=== PATIENT | male | born 2000 | race Caucasian/White ===

== ENCOUNTER 2019-04-22 13:11 | Emergency (ER) | payer OTHER ==
[~2019-04-22] VITALS: Ht 175.3 cm; Wt 111.7 kg
[~2019-04-22 13:11] MED LIST: AMOX500C2 PO; IBUP-1542 PO; NPH10OT LEFT EAR
[2019-04-22 13:32] VITALS: Ht 175.3 cm; Wt 111.7 kg
[2019-04-22] MEDS ORDERED: LIDOCAINE/MYLANTA 40 ML BTL PO STA (14:21)
[2019-04-22] MEDS ORDERED: FAMOTIDINE 20 MG TAB PO ONE (14:30)
[2019-04-22] MEDS ORDERED: FAMO10TA84 PO (15:20)
[2019-04-22] MEDS ORDERED: DOCU-144 PO (15:20)
[2019-04-22] MEDS ORDERED: POLY17PO6 PO (15:20)
[2019-04-22] MEDS ORDERED: UDMYL PO (15:20)
--- NOTE | 2019-04-22 15:21 | ERD ---
ER Documentation Chief Complaint Chief Complaint ABD PAIN WITH CONSTIPATION X 2 DAYS ROS All systems reviewed and are negative except as per history of present illness. Medications Home Meds Active Scripts Polyethylene Glycol* (Miralax*) 17 Gm Powd.pack, 17 GM PO DAILY PRN for CONSTIPATION, #7 Prov:GUSTAVO FOY DO 04/22/19 Docusate Sodium* (Colace*) 100 Mg Capsule, 100 MG PO BID PRN for CONSTIPATION, #30 CAP Prov:GUSTAVO FOY DO 04/22/19 Famotidine* (Famotidine*) 10 Mg Tablet, 10 MG PO BID PRN for reflux, #60 TAB Prov:GUSTAVO FOY DO 04/22/19 Magaldrate/Simethicone* (Mag-Al Plus Suspension*) 30 Ml Oral.susp, 30 ML PO Q6H PRN for GASTROINTESTINAL UPSET, #1 BOTTLE Prov:GUSTAVO FOY DO 04/22/19 Ibuprofen* (Motrin*) 600 Mg Tab, 600 MG PO Q6, #30 TAB Prov:LORENA MAGAÑA PA-C 12/11/18 Neomycin/Polymyxin/Hydrocort* (Cortisporin* Otic) 10 Ml Susp, 4 DROP LEFT EAR QID for 7 Days, EA Prov:LORENA MAGAÑA PA-C 12/11/18 Amoxicillin* (Amoxicillin*) 500 Mg Cap, 500 MG PO BID for 10 Days, CAP Prov:LORENA MAGAÑA PA-C 12/11/18 Allergies Allergies: Coded Allergies: No Known Allergy (Unverified , 12/31/14) PMhx/Soc History of Surgery: No Anesthesia Reaction: No Hx Neurological Disorder: No Hx Respiratory Disorders: Yes (ASTHMA) Hx Cardiac Disorders: No Hx Psychiatric Problems: No Hx Miscellaneous Medical Probl: No Hx Alcohol Use: No Hx Substance Use: No Hx Tobacco Use: No Smoking Status: Never smoker Physical Exam Vitals Vital Signs Date Temp Pulse Resp B/P (MAP) Pulse Ox O2 O2 Flow FiO2 Time Delivery Rate 04/22/19 98.1 88 18 137/65 98 13:32 (89) Physical Exam Const: No acute distress Head: Atraumatic Eyes: Normal Conjunctiva ENT: Normal External Ears, Nose and Mouth. Neck: Full range of motion. No meningismus. Resp: Clear to auscultation bilaterally Cardio: Regular rate and rhythm, no murmurs Abd: Soft, non tender, non distended. Normal bowel sounds Skin: No petechiae or rashes Back: No midline or flank tenderness Ext: No cyanosis, or edema Neur: Awake and alert Psych: Normal Mood and Affect Result Diagram: 04/22/19 1430 04/22/19 1430 Results 24 hrs Laboratory Tests Test 04/22/19 14:29 04/22/19 14:30 Urine Color YELLOW Urine Clarity CLEAR Urine pH 6.0 Urine Specific [place] 1.018 Urine Ketones NEGATIVE mg/dL Urine Nitrite NEGATIVE mg/dL Urine Bilirubin NEGATIVE mg/dL Urine Urobilinogen NEGATIVE mg/dL Urine Leukocyte Esterase NEGATIVE Lenin/ul Urine Hemoglobin NEGATIVE mg/dL Urine Glucose NEGATIVE mg/dL Urine Total Protein NEGATIVE mg/dl White Blood Count 6.8 10^3/ul Red Blood Count 5.43 10^6/ul Hemoglobin 15.4 g/dl Hematocrit 46.3 % Mean Corpuscular Volume 85.3 fl Mean Corpuscular Hemoglobin 28.4 pg Mean Corpuscular Hemoglobin Concent 33.3 g/dl Red Cell Distribution Width 12.5 % Platelet Count 257 10^3/UL Mean Platelet Volume 10.0 fl Immature Granulocytes % 0.300 % Neutrophils % 60.5 % Lymphocytes % 29.0 % Monocytes % 8.4 % Eosinophils % 1.2 % Basophils % 0.6 % Nucleated Red Blood Cells % 0.0 /100WBC Immature Granulocytes # 0.020 10^3/ul Neutrophils # 4.1 10^3/ul Lymphocytes # 2.0 10^3/ul Monocytes # 0.6 10^3/ul Eosinophils # 0.1 10^3/ul Basophils # 0.0 10^3/ul Nucleated Red Blood Cells # 0.0 10^3/ul Sodium Level 140 mmol/L Potassium Level 4.4 mmol/L Chloride Level 103 mmol/L Carbon Dioxide Level 28 mmol/L Anion Gap 9 Blood Urea Nitrogen 11 mg/dl Creatinine 0.82 mg/dl Est Glomerular Filtrat Rate mL/min > 60 mL/min Glucose Level 101 mg/dl Calcium Level 9.3 mg/dl Total Bilirubin 1.0 mg/dl Direct Bilirubin 0.00 mg/dl Indirect Bilirubin 1.0 mg/dl Aspartate Amino Transf (AST/SGOT) 28 IU/L Alanine Aminotransferase (ALT/SGPT) 29 IU/L Alkaline Phosphatase 126 IU/L Total Protein 8.4 g/dl Albumin 4.5 g/dl Globulin 3.90 g/dl Albumin/Globulin Ratio 1.15 Lipase 88 U/L Current Medications Medications Dose Sig/Luis Alberto Start Time Status Last (Trade) Ordered Route PRN Stop Time Admin Dose Reason Admin 40 ml ONCE STAT 04/22/19 DC 04/22/19 Miscellaneous PO 14:21 14:28 Medication 04/22/19 14:23 (Gi Cocktail (2)) Famotidine 20 mg ONCE ONCE 04/22/19 DC 04/22/19 (Pepcid) PO 14:30 14:28 04/22/19 14:31 Departure Diagnosis: Primary Impression: Abdominal pain Abdominal location: epigastric Qualified Codes: R10.13 - Epigastric pain Additional Impression: Constipation Constipation type: unspecified constipation type Qualified Codes: K59.00 - Constipation, unspecified Condition: Fair Patient Instructions: Abdominal Pain, Constipation (Adult) Additional Instructions: Call your primary care doctor TOMORROW for an appointment during the next 1-2 days.See the doctor sooner or return here if your condition worsens before your appointment time. GUSTAVO FOY DO Apr 22, 2019 15:21
[2019-04-22 15:32] VITALS: BP 132/80; PULSE 62; RESP 16
== END 2019-04-22 15:33 | disposition home or self-care (01) ==
LOC: FTE 13:11
DX: K59.00 Constipation, unspecified (principal); J45.909 Unspecified asthma, uncomplicated
CPT/HCPCS: 36415; 80053; 81003; 83690; 85025; Z7502; Z7610; 99283